=== PATIENT | male | born 2000 | race Caucasian/White ===

== ENCOUNTER 2021-07-04 23:17 | Emergency (ER) | payer SELFPAY ==
[~2021-07-04] VITALS: Ht 170.2 cm; Wt 75.0 kg
[2021-07-04 23:23] VITALS: BP 135/80
[2021-07-04] MEDS ORDERED: HYDROCODONE/ACETAMINOPHEN 5/325MG TABLET PO STA (23:37)
[2021-07-04] MEDS ORDERED: KETOROLAC 30MG/ML VIAL IV STA (23:37)
[2021-07-04] MEDS ORDERED: LIDOCAINE HCL 1% 20ML VIAL (Pyxis) INJ INFIL ONE (23:45)
[2021-07-05] MEDS ORDERED: HYDR-4001 MT (02:13)
== END 2021-07-05 02:26 | disposition home or self-care (01) ==
LOC: ER 23:17
DX: S62.315A Displaced fracture of base of fourth metacarpal bone, left hand, initial encounter for closed fracture (principal); Z79.899 Other long term (current) drug therapy; X58.XXXA Exposure to other specified factors, initial encounter; Y93.89 Activity, other specified; Y92.89 Other specified places as the place of occurrence of the external cause; Y99.8 Other external cause status
CPT/HCPCS: 26700; 73130; 96374; 99152; 99285; J1885; J3490